=== PATIENT | female | born 1990 | race Two or more races ===

== ENCOUNTER 2023-04-10 10:53 | Outpatient (CLI) | payer OTHER ==
[~2023-04-10 10:53] MED LIST: ADULT ASPIRIN81 MG
== END 2023-04-10 12:00 | disposition home or self-care (01) ==
LOC: PRENATAL 10:53
PROVIDERS: ATTEND Obstetrics & Gynecology Maternal & Fetal Medicine
DX: O36.80X0 Pregnancy with inconclusive fetal viability, not applicable or unspecified (principal); Z36.0 Encounter for antenatal screening for chromosomal anomalies; Z36.82 Encounter for antenatal screening for nuchal translucency; Z99.89 Dependence on other enabling machines and devices; Z3A.12 12 weeks gestation of pregnancy

== ENCOUNTER → 2023-06-11 13:00 | Outpatient (CLI) | payer OTHER | END | disposition home or self-care (01) | LOC: PRENATAL 13:00 | PROVIDERS: ATTEND Obstetrics & Gynecology Maternal & Fetal Medicine | DX: O35.3XX0 Maternal care for (suspected) damage to fetus from viral disease in mother, not applicable or unspecified (principal); O44.00 Complete placenta previa NOS or without hemorrhage, unspecified trimester; O99.891 Other specified diseases and conditions complicating pregnancy; Z3A.21 21 weeks gestation of pregnancy ==

== ENCOUNTER 2023-08-25 10:17 | Outpatient (CLI) | payer OTHER | END 2023-08-25 10:18 | disposition home or self-care (01) | LOC: PRENATAL 10:17 | PROVIDERS: ATTEND Obstetrics & Gynecology Maternal & Fetal Medicine | DX: O26.849 Uterine size-date discrepancy, unspecified trimester (principal); O36.8199 Decreased fetal movements, unspecified trimester, other fetus; O99.891 Other specified diseases and conditions complicating pregnancy; Z3A.32 32 weeks gestation of pregnancy ==